=== PATIENT | female | born 1935 | race Caucasian/White ===

== ENCOUNTER 2016-07-25 08:00 | Outpatient (CLI) | payer MEDICARE, BC | END 2016-07-25 23:59 | DX: R19.7 Diarrhea, unspecified (principal) ==

== ENCOUNTER 2016-07-25 15:09 | Outpatient (CLI) | payer MEDICARE, BC | END 2016-07-25 15:10 | disposition home or self-care (01) | DX: K52.89 Other specified noninfective gastroenteritis and colitis (principal) ==

== ENCOUNTER 2016-08-06 23:43 | Outpatient (CLI) | payer MEDICARE, BC | END 2016-08-06 23:44 | disposition critical access hospital (66) | DX: R50.9 Fever, unspecified (principal) | CPT/HCPCS: A0425; A0427 ==

== ENCOUNTER 2016-08-07 00:13 | Inpatient (IN) | payer MEDICARE, BC ==
[2016-08-07] MEDS ORDERED: SODIUM CHLORIDE 0.9% 1,000 ML IV ONE (00:18)
[2016-08-07] MEDS ORDERED: ACETAMINOPHEN 325 MG TABLET PO STA (01:48)
[2016-08-07] MEDS ORDERED: cefTRIAXone 1 GM in SODIUM CHLORIDE 0.9% MINIBAG 100 ML IV STA (01:48)
[2016-08-07] MEDS ORDERED: ACETAMINOPHEN 325 MG TABLET PO ONE (01:49)
[2016-08-07] MEDS ORDERED: cefTRIAXone 1 GM VIAL ONE (01:51)
[2016-08-07] MEDS ORDERED: SODIUM CHLORIDE FLUSH 0.9% 10 ML SYRINGE IVP PRN (02:25)
[2016-08-07] MEDS ORDERED: ONDANSETRON 4 MG/2 ML VIAL IVP PRN (02:25)
[2016-08-07] MEDS ORDERED: HYDROCORTISONE SUCCINATE 100 MG/2 ML VIAL IVP STA (02:28)
[2016-08-07] MEDS ORDERED: traZODone 50 MG TABLET PO SCH (03:00)
[2016-08-07] MEDS ORDERED: amLODIPine 5 MG TABLET PO SCH (03:00)
[2016-08-07] MEDS ORDERED: ACETAMINOPHEN 325 MG TABLET PO PRN (03:27)
[2016-08-07] MEDS ORDERED: HYDROCORTISONE SUCCINATE 100 MG/2 ML VIAL IVP ONE (03:39)
[2016-08-07] MEDS ORDERED: SODIUM CHLORIDE 0.9% 10 ML ONE (03:41)
[2016-08-07] MEDS ORDERED: SODIUM CHLORIDE 0.9% 1,000 ML IV SCH ×2 (04:00→18:00)
[2016-08-07] MEDS: POTASSIUM CHLOR 10 MEQ/100 ML 100 ML IV SCH ×4 (04:43→08:26)
[2016-08-07] MEDS: SODIUM CHLORIDE FLUSH 0.9% 10 ML SYRINGE IVP SCH ×3 (06:09→17:17)
[2016-08-07] MEDS ORDERED: SODIUM CHLORIDE 1 GM TABLET PO SCH (08:00)
[2016-08-07] MEDS: POLYETHYLENE GLYCOL 3350 17 GM PACKET PO SCH (08:26)
[2016-08-07] MEDS: DOCUSATE SODIUM 250 MG CAPSULE PO SCH (08:29)
[2016-08-07] MEDS: SACCHAROMYCES BOULARDII 250 MG CAPSULE PO SCH ×2 (08:29→16:50)
[2016-08-07] MEDS: SENNA 8.6 MG TABLET PO SCH (08:29)
[2016-08-07] MEDS: ENOXAPARIN 30 MG/0.3 ML SYRINGE SUBQ SCH (08:30)
[2016-08-07] MEDS ORDERED: MESALAMINE 3.6 GM PO SCH (09:00)
[2016-08-07] MEDS ORDERED: ENOXAPARIN 40 MG/0.4 ML SYRINGE SUBQ SCH (09:00)
[2016-08-07] MEDS ORDERED: TRIAMT/HCTZ 37.5 MG/25 MG CAPSULE PO SCH (09:00)
[2016-08-07] MEDS ORDERED: ALISKIREN HEMIFUMARATE 300 MG PO SCH (09:00)
[2016-08-07] MEDS ORDERED: ATENOLOL 25 MG TABLET PO SCH (09:00)
[2016-08-07] MEDS: BUDESONIDE 3 MG CAPSULE PO SCH (10:16)
[2016-08-07] MEDS ORDERED: traZODone 50 MG TABLET PO PRN (14:00)
[2016-08-07] MEDS: LEVOTHYROXINE 25 MCG TABLET PO SCH (14:25)
[2016-08-07] MEDS: MESALAMINE 400 MG CAPSULE PO SCH ×3 (14:25→22:16)
[2016-08-07] MEDS ORDERED: SODIUM CHLORIDE 1 GM TABLET PO ONE (16:00)
[2016-08-07] MEDS: SODIUM CHLORIDE 0.9% 1,000 ML IV SCH ×2 (19:00→22:09)
[2016-08-07] MEDS ORDERED: LOSARTAN 50 MG TABLET PO SCH (21:00)
[2016-08-08] MEDS ORDERED: cefTRIAXone 2 GM in SODIUM CHLORIDE 0.9% MINIBAG 100 ML IV SCH (02:00)
[2016-08-08] MEDS: SODIUM CHLORIDE FLUSH 0.9% 10 ML SYRINGE IVP SCH ×2 (05:11→08:41)
[2016-08-08] MEDS: MESALAMINE 400 MG CAPSULE PO SCH ×2 (05:30→14:06)
[2016-08-08] MEDS: SODIUM CHLORIDE 0.9% 1,000 ML IV SCH (06:23)
[2016-08-08] MEDS: LEVOTHYROXINE 25 MCG TABLET PO SCH (06:23)
[2016-08-08] MEDS: SENNA 8.6 MG TABLET PO SCH (07:33)
[2016-08-08] MEDS: POLYETHYLENE GLYCOL 3350 17 GM PACKET PO SCH (07:33)
[2016-08-08] MEDS: DOCUSATE SODIUM 250 MG CAPSULE PO SCH (07:33)
[2016-08-08] MEDS ORDERED: POTASSIUM CHLORIDE 20 MEQ TABLET PO SCH (08:00)
[2016-08-08] MEDS: ENOXAPARIN 30 MG/0.3 ML SYRINGE SUBQ SCH (08:40)
[2016-08-08] MEDS: BUDESONIDE 3 MG CAPSULE PO SCH (08:41)
[2016-08-08] MEDS: SACCHAROMYCES BOULARDII 250 MG CAPSULE PO SCH (08:41)
[2016-08-08] MEDS ORDERED: LOSARTAN 50 MG TABLET PO SCH (09:00)
[2016-08-08] MEDS ORDERED: TRIAMT/HCTZ 37.5 MG/25 MG CAPSULE PO SCH (09:00)
[2016-08-08] MEDS ORDERED: ATENOLOL 25 MG TABLET PO SCH (09:00)
[2016-08-08] MEDS ORDERED: SULFAMETH/TRIMETH DS 800/160 MG TABLET PO SCH (09:00)
[2016-08-08] MEDS ORDERED: CALCIUM CARBONATE CHEW 500 MG TABLET PO SCH (10:00)
[2016-08-08] MEDS ORDERED: SODIUM CHLORIDE 1 GM TABLET PO STA (13:58)
[2016-08-08] MEDS ORDERED: SODIUM CHLORIDE 0.9% 500 ML IV ONE (14:24)
== END 2016-08-08 14:48 | disposition home or self-care (01) | DRG 872 ==
DX: A41.9 Sepsis, unspecified organism (principal); N30.00 Acute cystitis without hematuria; N39.0 Urinary tract infection, site not specified; E87.1 Hypo-osmolality and hyponatremia; N17.9 Acute kidney failure, unspecified; R65.20 Severe sepsis without septic shock; E86.0 Dehydration; E87.6 Hypokalemia; R26.2 Difficulty in walking, not elsewhere classified; I10 Essential (primary) hypertension; K52.839 Microscopic colitis, unspecified; Z96.651 Presence of right artificial knee joint; Z79.899 Other long term (current) drug therapy

== ENCOUNTER 2016-08-24 23:19 | Emergency (ER) | payer MEDICARE, BC ==
--- NOTE | 2016-08-24 23:48 | ED Physician Documentation ---
History of Present Illness - Stated complaint Stated Complaint: F/N/V/HEAD ACHE - Chief complaint Chief Complaint: Fever - History obtained from History obtained from: Patient, Family - History of Present Illness Timing: Today (81-year-old woman with history of atrial fibrillation on Xarelto had urosepsis, admitted here earlier this month. Culture grew pansensitive E. coli. She was discharged on antibiotics but ended up being admitted to [facility] again for urosepsis just a few days later and discharged on antibiotics which finished 3 days ago. Developed chills last night and high fever today. She denies any pain except mild in the area of the left kidney. There is no vomiting or URI symptoms. No cough. She doesn't have urinary complaints either. She was given a shot of Rocephin earlier in the day at a walk in clinic.) Review of Systems Ten Systems: 10 systems reviewed and negative Constitutional: reports: Fever, Chills, Fatigue Nose: denies: Rhinorrhea / runny nose, Congestion Cardiac: denies: Chest pain / pressure, Palpitations Respiratory: denies: Dyspnea, Cough GI: denies: Abdominal Pain, Nausea, Vomiting, Diarrhea : denies: Dysuria, Frequency PD PAST MEDICAL HISTORY - Past Medical History Cardiovascular: Hypertension Respiratory: None Neuro: None Endocrine/Autoimmune: None GI: Other : None HEENT: None Psych: None Musculoskeletal: None Derm: Eczema - Past Surgical History Past Surgical History: Yes Ortho: Knee replacement HEENT: Cataracts - Present Medications Home Medications: Ambulatory Orders Medication Instructions Recorded Confirmed Aliskiren Hemifumarate [Tekturna] 300 mg PO DAILY 08/07/16 08/07/16 Atenolol 50 mg PO DAILY 08/07/16 08/07/16 Budesonide [Budesonide EC] 3 mg PO DAILY 08/07/16 08/07/16 Levothyroxine [Synthroid] 25 mcg PO QDAC 08/07/16 08/07/16 Mesalamine [Lialda] 3.6 gm PO DAILY 08/07/16 08/07/16 Triamterene/Hydrochlorothiazid 1 cap PO DAILY 08/07/16 08/07/16 [Triamterene-Hctz 37.5-25 mg Cp] amLODIPine [Norvasc] 5 mg PO ONCE 08/07/16 08/07/16 traZODone [Desyrel] 225 mg PO QPM PRN 08/07/16 08/07/16 Acetaminophen [Tylenol] 650 mg PO Q4HR PRN #0 tablet 08/08/16 Mesalamine [Delzicol] 1,200 mg PO TID capsule 08/08/16 Sulfamethoxazole/Trimethoprim 1 each PO BID #6 tablet 08/08/16 [Bactrim Ds Tablet] - Allergies Allergies/Adverse Reactions: Allergies Allergy/AdvReac Type Severity Reaction Status Date / Time metronidazole [From Flagyl] Allergy Unknown Verified 08/07/16 00:36 - Social History Does the pt smoke?: No Smoking Status: Never smoker Does the pt drink ETOH?: No Does the pt have substance abuse?: No - Family History Family history: reports: Non contributory - Immunizations Immunizations are current?: Yes PD ED PE NORMAL - Vitals Vital signs reviewed: Yes (Febrile) - General General: Alert and oriented X 3, No acute distress, Well developed/nourished - HEENT HEENT: PERRL, EOMI - Neck Neck: Supple, no meningeal sign, No bony TTP - Cardiac Cardiac: RRR, No murmur - Respiratory Respiratory: No respiratory distress, Clear bilaterally - Abdomen Abdomen: Normal bowel sounds, Soft, Non tender - Back Back: No CVA TTP, No spinal TTP - Derm Derm: Normal color, Warm and dry - Extremities Extremities: No edema, No calf tenderness / cord - Neuro Neuro: Alert and oriented X 3, it architect 2-12 intact - Psych Psych: Normal mood, Normal affect Results - Vitals Vitals: Vital Signs - 24 hr 08/24/16 08/25/16 23:36 01:30 Temperature 39.6 C H 36.4 C L Heart Rate 100 84 Respiratory 20 20 Rate Blood Pressure 160/114 H 129/67 O2 Saturation 94 97 Oxygen O2 Source Room air - Labs Labs: Laboratory Tests 08/25/16 08/25/16 08/25/16 00:01 00:01 00:01 WBC 13.8 H RBC 3.57 L Hgb 11.0 L Hct 32.8 L MCV 91.9 MCH 30.8 MCHC 33.5 RDW 14.0 Plt Count 307 MPV 8.7 Neut # 12.4 H Lymph # 0.[address] [place] # 0.7 Eos # 0.0 Baso # 0.1 Absolute Nucleated RBC 0.01 Nucleated RBCs 0.0 Sodium 128 L Potassium 3.1 L Chloride 92 L Carbon Dioxide 25 Anion Gap 11.0 BUN 20 Creatinine 1.2 H Estimated GFR (MDRD) 43 L Glucose 117 H Lactic Acid 1.4 Calcium 8.6 Total Bilirubin 0.3 AST 20 ALT 18 Alkaline Phosphatase 43 Total Protein 7.3 Albumin 3.7 Globulin 3.6 Albumin/Globulin Ratio 1.0 Lipase 72 H Urine Color Urine Clarity Urine pH Ur Specific [place]oman Urine Protein Urine Glucose (UA) Urine Ketones Urine Occult Blood Urine Nitrite Urine Bilirubin Urine Urobilinogen Ur Leukocyte Esterase Urine RBC Urine WBC Ur Squamous Epith Cells Urine Bacteria Urine Casts Urine Mucus Ur Microscopic Review Urine Culture Comments 08/25/16 01:08 WBC RBC Hgb Hct MCV MCH MCHC RDW Plt Count MPV Neut # Lymph # [place] # Eos # Baso # Absolute Nucleated RBC Nucleated RBCs Sodium Potassium Chloride Carbon Dioxide Anion Gap BUN Creatinine Estimated GFR (MDRD) Glucose Lactic Acid Calcium Total Bilirubin AST ALT Alkaline Phosphatase Total Protein Albumin Globulin Albumin/Globulin Ratio Lipase Urine Color YELLOW Urine Clarity CLEAR Urine pH 5.5 Ur Specific Loman 1.020 Urine Protein 30 H Urine Glucose (UA) NEGATIVE Urine Ketones NEGATIVE Urine Occult Blood TRACE-LYSE Urine Nitrite NEGATIVE Urine Bilirubin NEGATIVE Urine Urobilinogen 0.2 (NORMAL) Ur Leukocyte Esterase NEGATIVE Urine RBC 0-5 Urine WBC 0-3 Ur Squamous Epith Cells RARE Squamous Urine Bacteria Rare Urine Casts 6-10 Hyaline Casts Urine Mucus Few Strands Ur Microscopic Review INDICATED Urine Culture Comments NOT INDICATED - Rads (name of study) CT KUB Radiology: EMP read contemporaneously (Gallstones, no renal stones/mass etc.) PD MEDICAL DECISION MAKING - ED course ED course: 81-year-old woman presents with fever and concern for recurrent urosepsis. Her urine is normal here. CT was done in case she had recurrent urosepsis 2 rule out obstructive lesion. She does have some perinephric stranding there. She is nontoxic with a normal lactate here. She has a prescription for Keflex and advised to fill this tomorrow and take it, already got Rocephin earlier in the day from an urgent care. Departure - Departure Disposition: 01 Home, Self Care Clinical Impression: Febrile disorder Condition: Good Record reviewed to determine appropriate education?: Yes Instructions: ED Fever Unconf Cause Comments: Thankfully your urine today is normal. I recommend filling the prescription for antibiotics you were given earlier in the day from the urgent care and taking those as instructed. Return if worse.
[2016-08-24] MEDS ORDERED: ACETAMINOPHEN 325 MG TABLET PO ONE (23:51)
[2016-08-24] MEDS: ACETAMINOPHEN 325 MG TABLET PO STA (23:53)
[2016-08-25 00:15] LABS: BASOPHILS # (AUTO) 0.1 10^3/uL (0.0-0.1); BASOPHILS % (AUTO) 0.5 %; EOSINOPHILS % (AUTO) 0.3 %; HCT - HEMATOCRIT 32.8 % (37.0-47.0); LYMPHOCYTES # (AUTO) 0.6 10^3/uL (1.5-3.5); LYMPHOCYTES % (AUTO) 4.2 %; MEAN CORPUSCULAR HEMOGLOBIN 30.8 pg (27.0-31.0); MEAN CORPUSCULAR HGB CONC 33.5 g/dL (32.0-36.0); MEAN CORPUSCULAR VOLUME 91.9 fL (81.0-99.0); MEAN PLATELET VOLUME 8.7 fL (7.9-10.8); MONOCYTES # (AUTO) 0.7 10^3/uL (0.0-1.0); MONOCYTES % (AUTO) 5.1 %; NEUTROPHILS # (AUTO) 12.4 10^3/uL (1.5-6.6); NEUTROPHILS % (AUTO) 89.9 %; RED BLOOD COUNT 3.57 10^6/uL (4.20-5.40); UNCORRECTED WHITE BLOOD COUNT 13.8 x10^3/uL; WHITE BLOOD COUNT 13.8 x10^3/uL (4.8-10.8)
[2016-08-25] MEDS: SODIUM CHLORIDE 0.9% 1,000 ML IV ONE (00:17)
[2016-08-25 00:28] LABS: BILIRUBIN,TOTAL 0.3 mg/dL (0.2-1.0); CALCIUM 8.6 mg/dL (8.5-10.3); CREATININE 1.2 mg/dL (0.4-1.0); POTASSIUM 3.1 mmol/L (3.5-5.0); TOTAL PROTEIN 7.3 g/dL (6.7-8.2)
[2016-08-25 01:14] LABS: BILIRUBIN,URINE NEGATIVE (NEGATIVE); PH,URINE 5.5 PH (5.0-7.5)
[2016-08-25 01:15] LABS: UA w/ MICROSCOPIC CHARGE YES
[2016-08-25 01:18] LABS: UR CULTURE IF IND NOT INDICATED; WBC,URINE 0-3 /HPF (0-5)
[2016-08-25] MEDS ORDERED: POTASSIUM CHLORIDE 20 MEQ TABLET PO ONE (01:22)
[2016-08-25] MEDS: POTASSIUM CHLORIDE 20 MEQ TABLET PO STA (01:27)
[2016-08-25 01:32] VITALS: BP 129/67
--- NOTE | 2016-08-25 01:37 | CT Preliminary Report ---
Exam: CT Abdomen/Pelvis W/O IMPRESSION: 1. Gallstones. No CT findings concerning for acute cholecystitis. 2. No renal mass, stones or hydronephrosis. Mild nonspecific bilateral perinephric stranding. Finding s may be related to recent urinary tract infection. No perinephric fluid collections identified. [facility] SITE ID: [id number]
--- NOTE | 2016-08-25 01:46 | CT Report ---
EXAM: CT ABDOMEN AND PELVIS (CT KUB) EXAM DATE: 08/25/2016 12:43 AM. CLINICAL HISTORY: Recurrent UTI. COMPARISONS: None. TECHNIQUE: Routine axial helical CT imaging was performed through the abdomen and pelvis without IV c ontrast. Reconstructions: Coronal and sagittal. In accordance with CT protocol optimization, one or more of the following dose reduction techniques w ere utilized for this exam: automated exposure control, adjustment of mA and/or KV based on patient s ize, or use of iterative reconstructive technique. FINDINGS: Lung Bases: Small hiatal hernia. Lung bases are clear. Mild cardiac enlargement noted. No pericardial effusion present. Right Kidney/Ureter: No stones, hydronephrosis, or hydroureter. Mild nonspecific perinephric fat stra nding. No perinephric fluid collection noted. Left Kidney/Ureter: No stones, hydronephrosis, or hydroureter. Mild nonspecific perinephric fat stran ding. Incidental 1.2 cm mid left renal hyperdense cortical lesion. 2.5 cm exophytic posterior mid lef t renal simple cyst. No perinephric fluid collections noted. Other Solid Organs: Noncontrast images of the solid organs are grossly unremarkable. Gallbladder/Bile Ducts: Gallstone is noted without gallbladder wall thickening or common bile duct di latation. Peritoneal Cavity: No free fluid, free air or ernst adenopathy. Bowel is grossly unremarkable. Normal appendix. Pelvic Organs: No bladder stones or wall thickening. Noncontrast images of the visualized pelvic orga ns are unremarkable. Vasculature: Diffuse atheromatous plaques are present in the abdominal aorta and branch vessels. No a neurysm. Normal IVC. Other: No osteoblastic or osteolytic lesions are noted. Moderate convex to the left curvature of the mid lumbar spine. IMPRESSION: 1. Gallstones. No CT findings concerning for acute cholecystitis. 2. No renal mass, stones or hydronephrosis. Mild nonspecific bilateral perinephric stranding. Finding s may be related to recent urinary tract infection. No perinephric fluid collections identified. [facility] Referring Provider Line: [phone] SITE ID: [id number]
== END 2016-08-25 02:00 | disposition home or self-care (01) ==
LOC: ED 23:19
DX: R50.9 Fever, unspecified (principal); K80.20 Calculus of gallbladder without cholecystitis without obstruction; I10 Essential (primary) hypertension
CPT/HCPCS: 36415; 74176; 80053; 81001; 81003; 83605; 83690; 85025; 87040; 87086; 99283; 99284

== ENCOUNTER 2019-12-08 08:00 | Outpatient (CLI) | payer MEDICARE, BC ==
[2019-12-08 16:00] LABS: BUN - BLOOD UREA NITROGEN 28 mg/dL (6-20); CALCIUM 8.8 mg/dL (8.5-10.3); CARBON DIOXIDE - CO2 24 mmol/L (21-32); CHLORIDE 92 mmol/L (101-111); CREATININE 1.3 mg/dL (0.4-1.0); DIGOXIN 0.7 ng/mL; GLUCOSE 107 mg/dL (70-100); SODIUM 130 mmol/L (135-145)
== END 2019-12-08 23:59 | disposition home or self-care (01) ==
LOC: LAB.R 08:00
PROVIDERS: ATTEND Hospitalist
DX: Z51.81 Encounter for therapeutic drug level monitoring (principal); I48.91 Unspecified atrial fibrillation; Z79.899 Other long term (current) drug therapy
CPT/HCPCS: 80048; 80162

== ENCOUNTER 2020-02-05 09:57 | Outpatient (CLI) | payer MEDICARE, BC ==
[2020-02-05 15:40] LABS: ALBUMIN 3.9 g/dL (3.2-5.5); BUN - BLOOD UREA NITROGEN 12 mg/dL (6-20); CALCIUM 9.1 mg/dL (8.5-10.3); CARBON DIOXIDE - CO2 24 mmol/L (21-32); CHLORIDE 97 mmol/L (101-111); CHOL/HDL RATIO 6.4 (<4.4); CHOLESTEROL 242 mg/dL; CREATININE 1.2 mg/dL (0.4-1.0); DIGOXIN 0.7 ng/mL; GLUCOSE 120 mg/dL (70-100); HDL CHOLESTEROL 38 mg/dL; LDL CHOLESTEROL,CALCULATED 160 mg/dL; LDL/HDL RATIO 4.2 (<4.4); PHOSPHORUS 3.6 mg/dL (2.5-4.6); SODIUM 133 mmol/L (135-145); VLDL CHOLESTEROL 44 mg/dL
== END 2020-02-05 09:58 | disposition home or self-care (01) ==
LOC: LAB.S 09:57
PROVIDERS: ATTEND Nurse Practitioner Family
DX: R60.0 Localized edema (principal); N18.30 Chronic kidney disease, stage 3 unspecified; E78.5 Hyperlipidemia, unspecified; I50.9 Heart failure, unspecified
CPT/HCPCS: 36415; 80061; 80069; 80162; 83721

== ENCOUNTER 2020-05-10 10:17 | Outpatient (CLI) | payer MEDICARE, BC ==
[2020-05-10 16:21] LABS: CALCIUM 8.9 mg/dL (8.5-10.3)
== END 2020-05-10 10:18 | disposition home or self-care (01) ==
LOC: LAB.S 10:17
PROVIDERS: ATTEND Nurse Practitioner Family
DX: R60.0 Localized edema (principal); N18.30 Chronic kidney disease, stage 3 unspecified; I48.0 Paroxysmal atrial fibrillation; I50.9 Heart failure, unspecified
CPT/HCPCS: 36415; 80048; 83880

== ENCOUNTER 2020-08-10 09:21 | Outpatient (CLI) | payer MEDICARE, BC ==
[2020-08-10 15:48] LABS: DIGOXIN 0.7 ng/mL
== END 2020-08-10 09:22 | disposition home or self-care (01) ==
LOC: LAB.S 09:21
PROVIDERS: ATTEND Nurse Practitioner Family
DX: I50.32 Chronic diastolic (congestive) heart failure (principal); I48.0 Paroxysmal atrial fibrillation; I50.9 Heart failure, unspecified; N18.30 Chronic kidney disease, stage 3 unspecified
CPT/HCPCS: 36415; 80162; 83880

== ENCOUNTER 2020-12-27 09:25 | Outpatient (CLI) | payer MEDICARE, BC ==
[2020-12-27 15:24] LABS: CALCIUM 9.5 mg/dL (8.5-10.3); CREATININE 1.2 mg/dL (0.4-1.0); POTASSIUM 2.8 mmol/L (3.5-5.0)
== END 2020-12-27 09:26 | disposition home or self-care (01) ==
LOC: LAB.S 09:25
DX: R06.02 Shortness of breath (principal)
CPT/HCPCS: 36415; 80048; 83880

== ENCOUNTER 2021-03-03 10:56 | Outpatient (CLI) | payer MEDICARE, BC ==
[2021-03-03 15:47] LABS: CALCIUM 9.3 mg/dL (8.5-10.3); POTASSIUM 3.8 mmol/L (3.5-5.0)
== END 2021-03-03 10:57 | disposition home or self-care (01) ==
LOC: LAB.S 10:56
PROVIDERS: ATTEND Nurse Practitioner Family
DX: E87.6 Hypokalemia (principal)
CPT/HCPCS: 36415; 80048

== ENCOUNTER 2021-06-07 11:14 | Outpatient (CLI) | payer MEDICARE, BC ==
[2021-06-07 15:40] LABS: CALCIUM 9.3 mg/dL (8.5-10.3); CREATININE 1.1 mg/dL (0.4-1.0); POTASSIUM 3.8 mmol/L (3.5-5.0)
== END 2021-06-07 11:15 | disposition home or self-care (01) ==
LOC: LAB.S 11:14
PROVIDERS: ATTEND Nurse Practitioner Family
DX: E87.6 Hypokalemia (principal); I13.0 Hypertensive heart and chronic kidney disease with heart failure and stage 1 through stage 4 chronic kidney disease, or unspecified chronic kidney disease; I50.32 Chronic diastolic (congestive) heart failure; N18.30 Chronic kidney disease, stage 3 unspecified; R60.0 Localized edema; R06.02 Shortness of breath; I48.0 Paroxysmal atrial fibrillation
CPT/HCPCS: 36415; 80048; 83880

== ENCOUNTER 2021-10-20 08:14 | Outpatient (CLI) | payer MEDICARE, BC ==
[2021-10-20 14:34] LABS: BUN - BLOOD UREA NITROGEN 27 mg/dL (6-20); CALCIUM 9.3 mg/dL (8.5-10.3); CARBON DIOXIDE - CO2 28 mmol/L (21-32); CHLORIDE 103 mmol/L (101-111); CREATININE 1.1 mg/dL (0.4-1.0); DIGOXIN 0.2 ng/mL; GFR - MDRD 47 (>89); GLUCOSE 108 mg/dL (70-100); POTASSIUM 3.7 mmol/L (3.5-5.0); SODIUM 140 mmol/L (135-145)
== END 2021-10-20 08:15 | disposition home or self-care (01) ==
LOC: LAB.S 08:14
PROVIDERS: ATTEND Nurse Practitioner
DX: I13.0 Hypertensive heart and chronic kidney disease with heart failure and stage 1 through stage 4 chronic kidney disease, or unspecified chronic kidney disease (principal); I50.32 Chronic diastolic (congestive) heart failure; N18.31 Chronic kidney disease, stage 3a; E87.6 Hypokalemia; R06.02 Shortness of breath; R60.0 Localized edema; I48.91 Unspecified atrial fibrillation
CPT/HCPCS: 36415; 80048; 80162; 83880

== ENCOUNTER 2022-01-10 13:50 | Outpatient (CLI) | payer MEDICARE, BC ==
[2022-01-10 19:54] LABS: CREATININE 1.2 mg/dL (0.4-1.0); POTASSIUM 4.1 mmol/L (3.5-5.0)
== END 2022-01-10 13:51 | disposition home or self-care (01) ==
LOC: LAB.S 13:50
PROVIDERS: ATTEND Nurse Practitioner Family
DX: I13.0 Hypertensive heart and chronic kidney disease with heart failure and stage 1 through stage 4 chronic kidney disease, or unspecified chronic kidney disease (principal); I50.32 Chronic diastolic (congestive) heart failure; N18.31 Chronic kidney disease, stage 3a; I48.0 Paroxysmal atrial fibrillation; R55 Syncope and collapse; E78.5 Hyperlipidemia, unspecified; R06.02 Shortness of breath
CPT/HCPCS: 36415; 80048; 83880

== ENCOUNTER 2022-03-29 07:21 | Outpatient (CLI) | payer MEDICARE, BC ==
[2022-03-29 15:31] LABS: CALCIUM 9.1 mg/dL (8.5-10.3); CREATININE 1.3 mg/dL (0.4-1.0); POTASSIUM 4.1 mmol/L (3.5-5.0)
== END 2022-03-29 07:22 | disposition home or self-care (01) ==
LOC: LAB.S 07:21
PROVIDERS: ATTEND Nurse Practitioner Family
DX: I48.91 Unspecified atrial fibrillation (principal); R55 Syncope and collapse; E87.6 Hypokalemia; J98.4 Other disorders of lung; R06.02 Shortness of breath
CPT/HCPCS: 36415; 80048; 83880

== ENCOUNTER 2022-04-19 07:00 | Outpatient (CLI) | payer MEDICARE, BC ==
[2022-04-19 19:38] LABS: CALCIUM 9.1 mg/dL (8.5-10.3); CREATININE 1.3 mg/dL (0.4-1.0); POTASSIUM 4.7 mmol/L (3.5-5.0)
== END 2022-04-19 23:59 | disposition home or self-care (01) ==
LOC: LAB.S 07:00
PROVIDERS: ATTEND Nurse Practitioner Family
DX: I48.91 Unspecified atrial fibrillation (principal); R55 Syncope and collapse; I50.32 Chronic diastolic (congestive) heart failure
CPT/HCPCS: 36415; 80048; 83880

== ENCOUNTER 2022-04-21 13:30 | Outpatient (CLI) | payer MEDICARE, BC ==
[2022-04-21 21:12] LABS: BILIRUBIN,URINE NEGATIVE (NEGATIVE); GLUCOSE, URINE (UA) 500 mg/dL (NEGATIVE); KETONES,URINE (UA) NEGATIVE (NEGATIVE); LEUKOCYTE ESTERASE, URINE MODERATE (NEGATIVE); NITRITE,URINE NEGATIVE (NEGATIVE); OCCULT BLOOD,URINE NEGATIVE (NEGATIVE); PROTEIN,URINE NEGATIVE (NEGATIVE); UROBILINOGEN,URINE 0.2 (NORMAL) E.U./dL (NORMAL)
[2022-04-21 21:23] LABS: BASOPHILS # (AUTO) 0.1 10^3/uL (0.0-0.1); BASOPHILS % (AUTO) 0.5 %; EOSINOPHILS # (AUTO) 0.2 10^3/uL (0.0-0.7); EOSINOPHILS % (AUTO) 1.7 %; HCT - HEMATOCRIT 46.3 % (37.0-47.0); HGB - HEMOGLOBIN 14.3 g/dL (12.0-16.0); LYMPHOCYTES # (AUTO) 2.2 10^3/uL (1.5-3.5); MEAN CORPUSCULAR HGB CONC 30.9 g/dL (32.0-36.0); MEAN CORPUSCULAR VOLUME 90.8 fL (81.0-99.0); MEAN PLATELET VOLUME 10.9 fL (7.9-10.8); MONOCYTES # (AUTO) 0.8 10^3/uL (0.0-1.0); MONOCYTES % (AUTO) 7.5 %; NEUTROPHILS # (AUTO) 7.6 10^3/uL (1.5-6.6); PLT - PLATELET COUNT 280 10^3/uL (130-450); RED CELL DISTRIBUTION WIDTH 14.6 % (12.0-15.0); WHITE BLOOD COUNT 10.9 x10^3/uL (4.8-10.8)
[2022-04-21 21:27] LABS: CLARITY,URINE CLOUDY (CLEAR)
[2022-04-21 22:14] LABS: RBC,URINE 0-5 /HPF (0-5); WBC CLUMPS,URINE PRESENT
[2022-04-21 22:15] LABS: BACTERIA,URINE Moderate /HPF (None Seen); SQUAMOUS EPITHELIAL CELL,UR FEW Squamous (<= Few)
== END 2022-04-21 13:31 | disposition home or self-care (01) ==
LOC: LAB.S 13:30
PROVIDERS: ATTEND Nurse Practitioner Family
DX: M54.50 Low back pain, unspecified (principal)
CPT/HCPCS: 36415; 81001; 85025; 87077; 87086; 87181

== ENCOUNTER 2022-08-03 13:55 | Outpatient (CLI) | payer MEDICARE, BC ==
[2022-08-03 20:26] LABS: CALCIUM 8.8 mg/dL (8.5-10.3); CREATININE 1.3 mg/dL (0.4-1.0); POTASSIUM 4.9 mmol/L (3.5-5.0)
== END 2022-08-03 13:56 | disposition home or self-care (01) ==
LOC: LAB.S 13:55
PROVIDERS: ATTEND Nurse Practitioner Family
DX: I48.91 Unspecified atrial fibrillation (principal); R55 Syncope and collapse; I13.0 Hypertensive heart and chronic kidney disease with heart failure and stage 1 through stage 4 chronic kidney disease, or unspecified chronic kidney disease; N18.31 Chronic kidney disease, stage 3a; I50.32 Chronic diastolic (congestive) heart failure; R60.0 Localized edema
CPT/HCPCS: 36415; 80048; 83880

== ENCOUNTER 2022-12-20 08:00 | Outpatient (CLI) | payer MEDICARE, BC | END 2022-12-20 23:59 | disposition home or self-care (01) | LOC: LAB.S 08:00 | PROVIDERS: ATTEND Physician Assistant | DX: N10 Acute pyelonephritis (principal) | CPT/HCPCS: 87077; 87086; 87181 ==

== ENCOUNTER 2022-12-28 10:23 | Outpatient (CLI) | payer MEDICARE, BC | END 2022-12-28 10:24 | disposition home or self-care (01) | LOC: LAB.S 10:23 | PROVIDERS: ATTEND Nurse Practitioner Family | DX: I13.0 Hypertensive heart and chronic kidney disease with heart failure and stage 1 through stage 4 chronic kidney disease, or unspecified chronic kidney disease (principal); I50.32 Chronic diastolic (congestive) heart failure; N18.31 Chronic kidney disease, stage 3a; I48.91 Unspecified atrial fibrillation | CPT/HCPCS: 36415; 80048; 80162; 83880 ==

== ENCOUNTER 2022-12-29 08:00 | Outpatient (CLI) | payer MEDICARE, BC ==
[2022-12-29 20:23] LABS: BUN - BLOOD UREA NITROGEN 33 mg/dL (6-20); CALCIUM 9.4 mg/dL (8.5-10.3); CARBON DIOXIDE - CO2 27 mmol/L (21-32); CHLORIDE 101 mmol/L (101-111); CREATININE 1.4 mg/dL (0.6-1.3); DIGOXIN 0.8 ng/mL; GFR - MDRD 36 (>89); GLUCOSE 146 mg/dL (74-104); POTASSIUM 4.1 mmol/L (3.5-4.5); SODIUM 136 mmol/L (135-145)
== END 2022-12-29 23:59 | disposition home or self-care (01) ==
LOC: LAB.S 08:00
PROVIDERS: ATTEND Nurse Practitioner Family
DX: I12.9 Hypertensive chronic kidney disease with stage 1 through stage 4 chronic kidney disease, or unspecified chronic kidney disease (principal); N18.31 Chronic kidney disease, stage 3a; I50.32 Chronic diastolic (congestive) heart failure; I48.91 Unspecified atrial fibrillation; R55 Syncope and collapse; E87.6 Hypokalemia; R06.02 Shortness of breath; E78.5 Hyperlipidemia, unspecified
CPT/HCPCS: 36415; 80048; 80162

== ENCOUNTER 2023-07-04 11:29 | Outpatient (CLI) | payer MEDICARE, BC ==
[2023-07-04 17:00] LABS: BUN - BLOOD UREA NITROGEN 30 mg/dL (6-20); CARBON DIOXIDE - CO2 29 mmol/L (21-32); CHLORIDE 103 mmol/L (101-111); CHOL/HDL RATIO 3.4 (<4.4); CHOLESTEROL 176 mg/dL; CREATININE 1.4 mg/dL (0.6-1.3); GFR - MDRD 36 (>89); GLUCOSE 116 mg/dL (74-104); HDL CHOLESTEROL 52 mg/dL; LDL CHOLESTEROL,CALCULATED 88 mg/dL; LDL/HDL RATIO 1.7 (<4.4); POTASSIUM 4.8 mmol/L (3.5-4.5); SODIUM 140 mmol/L (135-145); TRIGLYCERIDES 180 mg/dL (48-352); VLDL CHOLESTEROL 36 mg/dL
[2023-07-04 17:27] LABS: DIGOXIN 0.6 ng/mL
== END 2023-07-04 11:30 | disposition home or self-care (01) ==
LOC: LAB.S 11:29
PROVIDERS: ATTEND Physician Assistant
DX: I50.32 Chronic diastolic (congestive) heart failure (principal); I48.11 Longstanding persistent atrial fibrillation
CPT/HCPCS: 36415; 80048; 80061; 80162; 83721; 83880

== ENCOUNTER 2023-10-04 14:49 | Outpatient (CLI) | payer MEDICARE, BC ==
[2023-10-04 19:54] LABS: BASOPHILS # (AUTO) 0.1 10^3/uL (0.0-0.1); BASOPHILS % (AUTO) 0.6 %; EOSINOPHILS # (AUTO) 0.1 10^3/uL (0.0-0.7); EOSINOPHILS % (AUTO) 1.5 %; HCT - HEMATOCRIT 44.2 % (37.0-47.0); HGB - HEMOGLOBIN 14.2 g/dL (12.0-16.0); LYMPHOCYTES # (AUTO) 2.6 10^3/uL (1.5-3.5); LYMPHOCYTES % (AUTO) 27.4 %; MEAN CORPUSCULAR HEMOGLOBIN 30.7 pg (27.0-31.0); MEAN CORPUSCULAR HGB CONC 32.1 g/dL (32.0-36.0); MEAN CORPUSCULAR VOLUME 95.5 fL (81.0-99.0); MEAN PLATELET VOLUME 10.9 fL (7.9-10.8); MONOCYTES # (AUTO) 0.8 10^3/uL (0.0-1.0); MONOCYTES % (AUTO) 8.6 %; NEUTROPHILS # (AUTO) 5.9 10^3/uL (1.5-6.6); NEUTROPHILS % (AUTO) 61.7 %; PLT - PLATELET COUNT 225 10^3/uL (130-450); RED BLOOD COUNT 4.63 10^6/uL (4.20-5.40); RED CELL DISTRIBUTION WIDTH 13.5 % (12.0-15.0); WHITE BLOOD COUNT 9.6 x10^3/uL (4.8-10.8)
== END 2023-10-04 14:50 | disposition home or self-care (01) ==
LOC: LAB.S 14:49
PROVIDERS: ATTEND Hospitalist
DX: I48.0 Paroxysmal atrial fibrillation (principal); D68.69 Other thrombophilia
CPT/HCPCS: 36415; 85025